=== PATIENT | female | born 1960 | race Caucasian/White ===

== ENCOUNTER 2022-01-01 07:44 | Day surgery (SDC) | payer OTHER ==
[~2022-01-01] VITALS: Ht 162.6 cm; Wt 54.9 kg
[~2022-01-01 07:44] MED LIST: CYAN500T14 PO; FISH1000 PO; LIDOCAINE 2% 100MG/5ML SDV (FOR ANES.) As Ordered ONE; MERC50TA2 PO; MESA1.2T PO; MULTTAB86 PO; NS 1,000 ML IV ONE; propofoL 200 MG/20 ML VIAL As Ordered ONE
[2022-01-01 09:40] VITALS: BP 111/69
== END 2022-01-01 09:51 | disposition home or self-care (01) ==
LOC: M OPP 07:44
PROVIDERS: ATTEND Internal Medicine Gastroenterology
DX: K51.40 Inflammatory polyps of colon without complications (principal); K51.50 Left sided colitis without complications; K52.9 Noninfective gastroenteritis and colitis, unspecified; K64.8 Other hemorrhoids; Z79.899 Other long term (current) drug therapy

== ENCOUNTER → 2023-03-25 | Outpatient (CLI) | payer OTHER ==
[~2023-03-25] MED LIST changes: -LIDOCAINE 2% 100MG/5ML SDV (FOR ANES.) As Ordered ONE; -NS 1,000 ML IV ONE; -propofoL 200 MG/20 ML VIAL As Ordered ONE
== END ==
LOC: M PLARAD 14:33
PROVIDERS: ATTEND Student in an Organized Health Care Education/Training Program
DX: S80.02XA Contusion of left knee, initial encounter (principal); S72.432A Displaced fracture of medial condyle of left femur, initial encounter for closed fracture; R60.0 Localized edema; M24.29 Disorder of ligament, other specified site; X58.XXXA Exposure to other specified factors, initial encounter; Y92.9 Unspecified place or not applicable; Y93.9 Activity, unspecified; Y99.9 Unspecified external cause status

== ENCOUNTER 2023-09-09 12:45 | Day surgery (SDC) | payer OTHER ==
[~2023-09-09] VITALS: Ht 162.6 cm; Wt 52.5 kg
[~2023-09-09 12:45] MED LIST changes: +BUDE3CAP5 PO; +LIAL1.2T PO; +MULT-90 PO; +NS 1,000 ML IV ONE; +VITA100018 PO; +VITA100024 PO; +ZINC30TA2 PO
[2023-09-09] MEDS ORDERED: propofoL 200 MG/20 ML VIAL As Ordered ONE (13:36)
[2023-09-09] MEDS ORDERED: LIDOCAINE 2% 100MG/5ML SDV (FOR ANES.) As Ordered ONE (13:37)
[2023-09-09 14:25] VITALS: BP 116/58; O2SAT 99
[2023-09-09 15:23] LABS: CLOSTRIDIUM DIFFICILE PCR NEGATIVE (NEGATIVE)
== END 2023-09-09 14:43 | disposition home or self-care (01) ==
LOC: M OPP 12:45
PROVIDERS: ATTEND Internal Medicine Gastroenterology
DX: K62.89 Other specified diseases of anus and rectum (principal); K51.90 Ulcerative colitis, unspecified, without complications; K92.1 Melena; Z79.1 Long term (current) use of non-steroidal anti-inflammatories (NSAID); Z79.52 Long term (current) use of systemic steroids; Z79.620 Long term (current) use of immunosuppressive biologic; Z53.8 Procedure and treatment not carried out for other reasons

== ENCOUNTER 2023-10-10 11:36 | Outpatient (CLI) | payer OTHER ==
[~2023-10-10] VITALS: Ht 162.6 cm; Wt 54.0 kg
[~2023-10-10 11:36] MED LIST changes: -NS 1,000 ML IV ONE
[2023-10-10 11:40] VITALS: BP 126/67; O2SAT 100
[2023-10-10] MEDS: VEDOLIZUMAB 300 MG in NS 250 ML IV ONE (12:06)
[2023-10-10 12:55] VITALS: BP 119/63; O2SAT 100
== END 2023-10-10 12:55 ==
LOC: M INFU 11:36
PROVIDERS: ATTEND Internal Medicine Gastroenterology
DX: K51.90 Ulcerative colitis, unspecified, without complications (principal)
CPT/HCPCS: 96365; J3380

== ENCOUNTER 2023-10-24 14:20 | Outpatient (CLI) | payer OTHER ==
[~2023-10-24] VITALS: Ht 162.6 cm; Wt 53.0 kg
[2023-10-24 14:20] VITALS: BP 121/57; O2SAT 99
[2023-10-24] MEDS: VEDOLIZUMAB 300 MG in NS 250 ML IV ONE (14:36)
[2023-10-24 15:20] VITALS: BP 114/63; O2SAT 100
== END 2023-10-24 15:20 ==
LOC: M INFU 14:20
PROVIDERS: ATTEND Internal Medicine Gastroenterology
DX: K51.90 Ulcerative colitis, unspecified, without complications (principal)
CPT/HCPCS: 96365; J3380

== ENCOUNTER 2023-11-22 09:15 | Outpatient (CLI) | payer OTHER ==
[~2023-11-22] VITALS: Ht 162.6 cm; Wt 54.9 kg
[2023-11-22 09:15] VITALS: BP 139/64; O2SAT 100
[2023-11-22] MEDS: VEDOLIZUMAB 300 MG in NS 250 ML IV ONE (09:41)
[2023-11-22 10:15] VITALS: BP 126/69; O2SAT 99
== END 2023-11-22 10:20 | disposition home or self-care (01) ==
LOC: M INFU 09:15
PROVIDERS: ATTEND Internal Medicine Gastroenterology
DX: K51.90 Ulcerative colitis, unspecified, without complications (principal)
CPT/HCPCS: 96365; J3380

== ENCOUNTER 2024-01-16 08:30 | Outpatient (CLI) | payer OTHER ==
[~2024-01-16] VITALS: Ht 162.6 cm; Wt 54.0 kg
[2024-01-16 08:30] VITALS: BP 119/60; O2SAT 100
[2024-01-16] MEDS: VEDOLIZUMAB 300 MG in NS 250 ML IV ONE (08:58)
[2024-01-16 09:35] VITALS: BP 113/56; O2SAT 100
== END 2024-01-16 09:35 ==
LOC: M INFU 08:30
PROVIDERS: ATTEND Internal Medicine Gastroenterology
DX: K51.90 Ulcerative colitis, unspecified, without complications (principal)
CPT/HCPCS: 96413; J3380

== ENCOUNTER 2024-03-12 08:21 | Outpatient (CLI) | payer OTHER ==
[~2024-03-12] VITALS: Ht 162.6 cm; Wt 54.0 kg
[2024-03-12 08:40] VITALS: BP 118/59; O2SAT 96
[2024-03-12] MEDS: VEDOLIZUMAB 300 MG in NS 250 ML IV ONE (09:49)
[2024-03-12 10:25] VITALS: BP 131/66; O2SAT 98
== END 2024-03-12 10:35 ==
LOC: M INFU 08:21
PROVIDERS: ATTEND Internal Medicine Gastroenterology
DX: K51.90 Ulcerative colitis, unspecified, without complications (principal)
CPT/HCPCS: 96413; J3380

== ENCOUNTER 2024-05-07 08:30 | Outpatient (CLI) | payer OTHER ==
[~2024-05-07] VITALS: Ht 162.6 cm; Wt 54.0 kg
[2024-05-07 08:40] VITALS: BP 114/56; TEMP 98.1; O2SAT 99
[2024-05-07] MEDS: VEDOLIZUMAB 300 MG in NS 250 ML IV ONE (09:08)
[2024-05-07 09:46] VITALS: BP 112/64; TEMP 98.2; O2SAT 100
== END 2024-05-07 09:47 ==
LOC: M INFU 08:30
PROVIDERS: ATTEND Internal Medicine Gastroenterology
DX: K51.90 Ulcerative colitis, unspecified, without complications (principal)
CPT/HCPCS: 96365; J3380

== ENCOUNTER 2024-08-27 08:25 | Outpatient (CLI) | payer OTHER ==
[~2024-08-27] VITALS: Ht 162.6 cm; Wt 54.5 kg
[~2024-08-27 08:25] MED LIST changes: +ALBUTEROL SULFATE 2.5MG/0.5ML INH NEB SOLN INH PRN; +EPINEPHrine INJ 1 MG/ML 1ML AMP IM PRN; +diphenhydrAMINE 50MG/ML VIAL IV PRN; +methylPREDNISolone 125MG 2ML VIAL IV PRN
[2024-08-27 08:30] VITALS: BP 133/68; O2SAT 96
[2024-08-27] MEDS ORDERED: NS (Normal Saline) 0.9% 1,000 ML IV SCH (08:30)
[2024-08-27] MEDS: VEDOLIZUMAB 300 MG in NS 250 ML IV ONE (09:18)
[2024-08-27 10:00] VITALS: BP 122/65; O2SAT 100
== END 2024-08-27 10:00 ==
LOC: M INFU 08:25
PROVIDERS: ATTEND Internal Medicine Gastroenterology
DX: K51.90 Ulcerative colitis, unspecified, without complications (principal)
CPT/HCPCS: 96365; J3380

== ENCOUNTER 2024-12-17 07:50 | Outpatient (CLI) | payer OTHER ==
[~2024-12-17] VITALS: Ht 162.6 cm; Wt 56.4 kg
[~2024-12-17 07:50] MED LIST changes: +ALBUTEROL SULFATE 2.5MG/0.5ML INH CONCENTRATE NEB SOLN INH PRN; -ALBUTEROL SULFATE 2.5MG/0.5ML INH NEB SOLN INH PRN
[2024-12-17 08:00] VITALS: BP 123/65; O2SAT 100
[2024-12-17] MEDS ORDERED: NS (Normal Saline) 0.9% 1,000 ML IV SCH (08:00)
[2024-12-17] MEDS: VEDOLIZUMAB 300 MG in NS 250 ML IV ONE (08:50)
[2024-12-17 09:30] VITALS: BP 116/78; O2SAT 100
== END 2024-12-17 09:30 | disposition home or self-care (01) ==
LOC: M INFU 07:50
PROVIDERS: ATTEND Internal Medicine Gastroenterology
DX: K51.90 Ulcerative colitis, unspecified, without complications (principal)
CPT/HCPCS: 96365; J3380

== ENCOUNTER 2025-04-08 07:56 | Outpatient (CLI) | payer OTHER ==
[~2025-04-08] VITALS: Ht 162.6 cm; Wt 54.5 kg
[~2025-04-08 07:56] MED LIST changes: +ALBUTEROL SULFATE 2.5 MG/0.5 ML INH CONCENTRATE NEB SOLN INH PRN; -ALBUTEROL SULFATE 2.5MG/0.5ML INH CONCENTRATE NEB SOLN INH PRN; +NS (Normal Saline) 0.9% 1,000 ML IV SCH; -VITA100024 PO; +VITA100051 PO; +diphenhydrAMINE 50 MG/ML VIAL IV PRN; -diphenhydrAMINE 50MG/ML VIAL IV PRN; -methylPREDNISolone 125MG 2ML VIAL IV PRN
[2025-04-08 08:05] VITALS: BP 114/68; O2SAT 100
[2025-04-08] MEDS: VEDOLIZUMAB 300 MG in NS 250 ML IV ONE (08:52)
[2025-04-08 09:30] VITALS: BP 123/66; O2SAT 100
== END 2025-04-08 09:30 | disposition home or self-care (01) ==
LOC: M INFU 07:56
PROVIDERS: ATTEND Internal Medicine Gastroenterology
DX: K51.90 Ulcerative colitis, unspecified, without complications (principal)
CPT/HCPCS: 96413; J3380

== ENCOUNTER 2025-06-03 07:48 | Outpatient (CLI) | payer OTHER ==
[~2025-06-03] VITALS: Ht 162.6 cm; Wt 57.0 kg
[~2025-06-03 07:48] MED LIST changes: -NS (Normal Saline) 0.9% 1,000 ML IV SCH
[2025-06-03] MEDS ORDERED: NS (Normal Saline) 0.9% 1,000 ML IV SCH (08:00)
[2025-06-03] MEDS ORDERED: ACETAMINOPHEN 650 MG PO ONE (08:00)
[2025-06-03 08:12] VITALS: BP 128/58; O2SAT 99
[2025-06-03] MEDS: VEDOLIZUMAB 300 MG in NS 250 ML IV ONE (08:58)
[2025-06-03 09:35] VITALS: BP 126/65; O2SAT 100
== END 2025-06-03 09:45 | disposition home or self-care (01) ==
LOC: M INFU 07:48
PROVIDERS: ATTEND Internal Medicine Gastroenterology
DX: K51.90 Ulcerative colitis, unspecified, without complications (principal)
CPT/HCPCS: 96365; J3380

== ENCOUNTER 2025-07-29 12:22 | Outpatient (CLI) | payer OTHER ==
[~2025-07-29] VITALS: Ht 162.6 cm; Wt 55.0 kg
[2025-07-29 13:00] VITALS: BP 127/68; O2SAT 99
[2025-07-29] MEDS ORDERED: NS (Normal Saline) 0.9% 1,000 ML IV SCH (13:00)
[2025-07-29] MEDS: VEDOLIZUMAB 300 MG in NS 250 ML IV ONE (13:29)
[2025-07-29 14:05] VITALS: BP 129/75; O2SAT 100
== END 2025-07-29 14:15 | disposition home or self-care (01) ==
LOC: M INFU 12:22
PROVIDERS: ATTEND Internal Medicine Gastroenterology
DX: K51.90 Ulcerative colitis, unspecified, without complications (principal)
CPT/HCPCS: 96365; J3380